=== PATIENT | female | born 1985 | race Caucasian/White ===

== ENCOUNTER → 2017-02-02 | Outpatient (CLI) | payer OTHER ==
[2017-02-02 20:46] LABS: BASO # 0.1 K/mm3 (0.0-0.2); BASO % 0.6 % (0.0-1.0); EOS # 0.1 K/mm3 (0.0-0.50); EOS % 0.9 % (0.0-3.0); LARGE UNSTAINED CELL # 0.2 K/mm3 (0.0-0.4); LARGE UNSTAINED CELL % 1.3 % (0.0-4.0); LYMPH # 2.3 K/mm3 (1.5-4.5); LYMPH % 14.9 % (24.0-44.0); MEAN CORPUSCULAR HGB CONC 33.5 g/dl (32.0-36.5); MEAN CORPUSCULAR VOLUME 89.5 fl (80.0-96.0); MONO # 0.7 K/mm3 (0.0-0.8); MONO % 4.7 % (0.0-5.0); NEUTROPHILS # 11.9 K/mm3 (1.8-7.7); NEUTROPHILS % 77.7 % (36.0-66.0); PLATELET COUNT, AUTOMATED 285 k/mm3 (150-450); RED CELL DISTRIBUTION WIDTH 12.5 % (11.5-14.5); WHITE BLOOD COUNT 15.3 K/mm3 (4.0-10.0)
[2017-02-03 10:05] LABS: HBsAg Prenatal NEGATIVE (NEGATIVE)
== END ==
LOC: M LRY 16:22
PROVIDERS: ATTEND Specialist
DX: Z34.81 Encounter for supervision of other normal pregnancy, first trimester (principal)

== ENCOUNTER → 2017-04-10 | Outpatient (CLI) | payer OTHER ==
[2017-04-10 09:35] LABS: TOTAL VOLUME, URINE 1950 ML
[2017-04-10 09:42] LABS: BASO % 0.2 % (0.0-1.0); EOS # 0.3 K/mm3 (0.0-0.50); EOS % 2.3 % (0.0-3.0); LARGE UNSTAINED CELL # 0.2 K/mm3 (0.0-0.4); LARGE UNSTAINED CELL % 1.4 % (0.0-4.0); LYMPH # 1.6 K/mm3 (1.5-4.5); LYMPH % 13.8 % (24.0-44.0); MEAN CORPUSCULAR HEMOGLOBIN 29.1 pg (27.0-33.0); MEAN CORPUSCULAR HGB CONC 33.4 g/dl (32.0-36.5); MEAN CORPUSCULAR VOLUME 87.1 fl (80.0-96.0); MONO # 0.4 K/mm3 (0.0-0.8); MONO % 3.3 % (0.0-5.0); NEUTROPHILS # 9.1 K/mm3 (1.8-7.7); PLATELET COUNT, AUTOMATED 238 k/mm3 (150-450); RED CELL DISTRIBUTION WIDTH 12.3 % (11.5-14.5); WHITE BLOOD COUNT 11.5 K/mm3 (4.0-10.0)
[2017-04-10 10:03] LABS: ALT/SGPT 17 U/L (12-78); AST/SGOT 12 U/L (15-37); BILIRUBIN,TOTAL 0.3 MG/DL (0.2-1.0); CREATININE FOR GFR 0.74 MG/DL (0.55-1.02); GLOMERULAR FILTRATION RATE > 60.0 (>60); URIC ACID 4.5 MG/DL (2.6-6.0)
[2017-04-10 10:19] LABS: CREATININE, SERUM 0.7 MG/DL (0.6-1.0)
[2017-04-10 10:30] LABS: CREATININE CLEARANCE, URINE 164.8 ML/MIN (75-115)
== END ==
LOC: M LAB 08:51
PROVIDERS: ATTEND Specialist
DX: Z34.81 Encounter for supervision of other normal pregnancy, first trimester (principal)

== ENCOUNTER → 2017-05-10 | Outpatient (CLI) | payer OTHER ==
--- NOTE | 2017-05-11 07:56 | REP ---
Clinical: Anatomical evaluation. Comparison: None . Findings: Examination demonstrates a single live intrauterine in cephalic presentation. motion is identified by technologist. Placenta is noted posteriorly and grade 0 without evidence for placenta previa or abruption. Amniotic fluid volume is normal. Cervix measures 3.6 cm in length and appears closed. No evidence for nuchal cord. Gestational age by LMP 19 weeks 5-day with RENÉE 09/29/2017 . Gestational age by current measurements 20 weeks 1 day with RENÉE 09/26/2017 . FHR equals 106th beats per minute. BPD 4.8 cm 20 weeks 3 days HC 17.8 cm 20 weeks 2 days AC 14.4 cm 19 weeks 5 days FL 3.6 cm 21 weeks 2 days HL 2.9 cm 19 weeks 2 days HC/AC ratio 1.23 Estimated weight 353 grams ( 74th percentile). Anatomical assessment demonstrates normal structures including cranium, choroid plexus, cavum, cerebellum/posterior fossa, lungs, diaphragm, stomach, cord insertion/three-vessel cord, kidneys/bladder, spine, and extremities. Impression: 1. Single live intrauterine in cephalic presentation demonstrating appropriate interval growth. 2. Limited evaluation of the facial features and heart/ventricular outflow tracts. Otherwise normal anatomical assessment. Signed by Topher Nunez MD 05/11/2017 07:47 A
== END ==
LOC: M RAD 09:28
PROVIDERS: ATTEND Specialist
DX: Z34.80 Encounter for supervision of other normal pregnancy, unspecified trimester (principal)

== ENCOUNTER → 2017-06-01 | Outpatient (CLI) | payer OTHER ==
--- NOTE | 2017-06-02 07:45 | REP ---
Clinical: Anatomical re-evaluation. Comparison: 05/10/2017 . Findings: Examination demonstrates a single live intrauterine in variable presentation. motion is identified by technologist. Placenta is noted posterior fundal and grade zero without evidence for placenta previa or abruption. Amniotic fluid volume is normal. Cervix measures 2.9 cm in length and appears closed. No evidence for nuchal cord. Gestational age by LMP 22 weeks 6 days with RENÉE 09/29/2017 . Gestational age by current measurements 23 weeks 2 days with RENÉE 09/26/2017 . FHR equals 142 beats per minute. Estimated weight 615 grams ( 69th percentile). Anatomical assessment demonstrates normal structures including cranium, choroid plexus, cavum, cerebellum/posterior fossa, facial features, lungs, four-chamber heart/ventricular outflow tracts, diaphragm, stomach, cord insertion/three-vessel cord, kidneys/bladder, spine, and extremities. Impression: 1. Single live intrauterine in variable presentation demonstrating appropriate interval growth. 2. In conjunction with prior examination anatomical assessment is complete and normal. Signed by Topher Nunez MD 06/02/2017 07:36 A
== END ==
LOC: M RAD 09:44
PROVIDERS: ATTEND Advanced Practice Midwife
DX: Z34.80 Encounter for supervision of other normal pregnancy, unspecified trimester (principal)

== ENCOUNTER → 2017-07-01 | Outpatient (CLI) | payer OTHER ==
[~2017-07-01] MED LIST: ASPI81CH PO
[2017-07-01 12:56] LABS: MEAN CORPUSCULAR HEMOGLOBIN 28.3 pg (27.0-33.0); MEAN CORPUSCULAR HGB CONC 31.9 g/dl (32.0-36.5); MEAN CORPUSCULAR VOLUME 88.6 fl (80.0-96.0); PLATELET COUNT, AUTOMATED 232 10^3/uL (150-450); RED CELL DISTRIBUTION WIDTH 13.2 % (11.5-14.5); WHITE BLOOD COUNT 13.4 10^3/uL (4.0-10.0)
== END ==
LOC: M SMT 08:24
PROVIDERS: ATTEND Advanced Practice Midwife
DX: Z34.82 Encounter for supervision of other normal pregnancy, second trimester (principal)
CPT/HCPCS: 36415; 82950; 85027; 86850; 86900; 86901; J2790

== ENCOUNTER 2017-07-04 01:37 | Outpatient (CLI) | payer OTHER ==
[~2017-07-04] VITALS: Ht 160 cm; Wt 124.5 kg
[2017-07-04 04:11] VITALS: BP 123/64
[2017-07-04] MEDS ORDERED: ASPI81CH PO (05:13)
== END 2017-07-04 04:50 | disposition home or self-care (01) ==
LOC: M LDO 01:37
PROVIDERS: ATTEND Obstetrics & Gynecology
DX: O26.852 Spotting complicating pregnancy, second trimester (principal); Z3A.27 27 weeks gestation of pregnancy; O9A.212 Injury, poisoning and certain other consequences of external causes complicating pregnancy, second trimester; X58.XXXA Exposure to other specified factors, initial encounter; Y93.9 Activity, unspecified; Y92.9 Unspecified place or not applicable; Y99.8 Other external cause status; S31.41XA Laceration without foreign body of vagina and vulva, initial encounter

== ENCOUNTER → 2017-07-05 | Outpatient (CLI) | payer OTHER | LOC: M LAB 08:25 | PROVIDERS: ATTEND Specialist | DX: R73.02 Impaired glucose tolerance (oral) (principal) ==

== ENCOUNTER → 2017-07-19 | Outpatient (CLI) | payer OTHER ==
--- NOTE | 2017-07-20 07:31 | REP ---
FOLLOWUP OBSTETRICAL ULTRASOUND: CLINICAL: well being. COMPARISON: 06/01/2017. FINDINGS: Ultrasound examination demonstrates single live intrauterine in cephalic presentation. motion was identified by the technologist. Placenta is noted posteriorly and grade 1 without evidence for placenta previa or abruption. Amniotic fluid volume is within normal limits. Gestational age by LMP 29 weeks 5 days with estimated date of delivery 09/29/2017. Gestational age by current measurements 30 weeks 1 day with estimated date of delivery 09/26/2017. FHR 131 beats per minute. BPD 7.5 cm 30 weeks 3 days HC 28.0 cm 30 weeks 5 days AC 26.9 cm 31 weeks 0 days FL 5.8 cm 30 weeks 1 day HC/AC ratio 1.04. Estimated weight 1617 grams (64th percentile). Amniotic fluid index equals 15.8 cm (9.1 - 23.3). Biophysical profile score equals 8 out of 8. Umbilical cord S/d ratio equals 3.72. IMPRESSION: Single live intrauterine in cephalic presentation. Estimated weight within normal range. Biophysical profile score equals 8 out of 8. Amniotic fluid index normal. Signed by Topher Nunez MD 07/23/2017 06:47 A
== END ==
LOC: M SMT 10:49
PROVIDERS: ATTEND Advanced Practice Midwife
DX: O10.011 Pre-existing essential hypertension complicating pregnancy, first trimester (principal); O24.410 Gestational diabetes mellitus in pregnancy, diet controlled

== ENCOUNTER → 2017-07-26 | Outpatient (CLI) | payer OTHER ==
--- NOTE | 2017-07-26 09:39 | REP ---
OB ULTRASOUND BIOPHYSICAL PROFILE: Real-time sonographic evaluation of the gravid uterus is performed. There is a single living intrauterine gestation. Estimated gestational age 30 weeks 5 days with EDC 09/29/2017. The cervix is closed and measures 4.1 cm in length. heart rate 139 beats per minute. Amniotic fluid within normal limits. CALOS 14.0 is within normal range of 8.9 to 23.7. Biophysical profile score is 8 out of 8. S/D ratio 3.44 within normal range. RI at 0.71 within normal range. stomach, kidneys and bladder are visualized and are grossly unremarkable. position is breech. The placenta is posterior and grade 1 with non previa or abruption. Signed by Roni Sainz MD 07/28/2017 08:53 A
== END ==
LOC: M SMT 08:24
PROVIDERS: ATTEND Advanced Practice Midwife
DX: O10.011 Pre-existing essential hypertension complicating pregnancy, first trimester (principal); O24.410 Gestational diabetes mellitus in pregnancy, diet controlled

== ENCOUNTER → 2017-08-02 | Outpatient (CLI) | payer OTHER ==
--- NOTE | 2017-08-03 04:34 | REP ---
Clinical: Biophysical profile. Technique: Transabdominal obstetrical ultrasound with color Doppler evaluation. Comparison: 07/26/2017. Findings: Ultrasound examination demonstrates a single live advanced gestation in transverse lie with head towards the maternal left. motion was appreciated. Placenta noted posteriorly and grade II without evidence for placenta previa or abruption. Cervix measures 4.6 cm in length and appears closed. Amniotic fluid volume is within normal range. heart rate: 126 beats per minute. Amniotic fluid index: 16.3 (8.7 - 24.1). Umbilical cord SD ratio: 3.48 (2.50 - 3.50). Biophysical profile score: 8/8 Impression: Single live advanced gestation in transverse lie. Amniotic fluid index normal. Biophysical profile score equals 8/8. Signed by Topher Nunez MD 08/03/2017 01:25 A
== END ==
LOC: M SMT 08:53
PROVIDERS: ATTEND Advanced Practice Midwife
DX: O24.410 Gestational diabetes mellitus in pregnancy, diet controlled (principal); Z3A.00 Weeks of gestation of pregnancy not specified

== ENCOUNTER → 2017-08-11 | Outpatient (CLI) | payer OTHER | LOC: M SMT 08:52 | DX: O24.410 Gestational diabetes mellitus in pregnancy, diet controlled (principal); Z3A.33 33 weeks gestation of pregnancy; O10.011 Pre-existing essential hypertension complicating pregnancy, first trimester ==

== ENCOUNTER → 2017-08-18 | Outpatient (CLI) | payer OTHER | LOC: M SMT 13:04 | DX: O24.410 Gestational diabetes mellitus in pregnancy, diet controlled (principal); Z3A.34 34 weeks gestation of pregnancy | CPT/HCPCS: 76819 ==

== ENCOUNTER → 2017-08-25 | Outpatient (CLI) | payer OTHER | LOC: M SMT 08:48 | DX: Z3A.35 35 weeks gestation of pregnancy (principal) ==

== ENCOUNTER → 2017-09-01 | Outpatient (CLI) | payer OTHER | LOC: M SMT 08:50 | DX: O10.013 Pre-existing essential hypertension complicating pregnancy, third trimester (principal); O24.410 Gestational diabetes mellitus in pregnancy, diet controlled; Z3A.35 35 weeks gestation of pregnancy | CPT/HCPCS: 76816 ==

== ENCOUNTER → 2017-09-08 | Outpatient (CLI) | payer OTHER | LOC: M SMT 10:17 | DX: O10.011 Pre-existing essential hypertension complicating pregnancy, first trimester (principal); O24.410 Gestational diabetes mellitus in pregnancy, diet controlled; Z3A.37 37 weeks gestation of pregnancy | CPT/HCPCS: 76819 ==

== ENCOUNTER 2017-09-15 07:43 | Inpatient (IN) | payer OTHER ==
[2017-09-15] MEDS: LACTATED RINGER'S 1000 ML IV (08:37)
[2017-09-15 08:57] LABS: HEMATOCRIT 38.7 % (36.0-47.0); HEMOGLOBIN 12.6 g/dl (12.0-16.0); MEAN CORPUSCULAR HEMOGLOBIN 28.3 pg (27.0-33.0); MEAN CORPUSCULAR HGB CONC 32.6 g/dl (32.0-36.5); MEAN CORPUSCULAR VOLUME 86.8 fl (80.0-96.0); PLATELET COUNT, AUTOMATED 223 10^3/uL (150-450); RED BLOOD COUNT 4.46 10^6/uL (4.00-5.40); RED CELL DISTRIBUTION WIDTH 14.4 % (11.5-14.5); WHITE BLOOD COUNT 10.8 10^3/uL (4.0-10.0)
[2017-09-15 09:25] LABS: AMPHETAMINES URINE REFLEX NEGATIVE (NEGATIVE); BARBITURATES URINE REFLEX NEGATIVE (NEGATIVE); BENZODIAZEPINES URINE REFLEX NEGATIVE (NEGATIVE); CANNABINOIDS URINE REFLEX NEGATIVE (NEGATIVE); COCAINE METABOLITE URINE REFLE NEGATIVE (NEGATIVE); METHADONE URINE REFLEX NEGATIVE (NEGATIVE); OPIATES URINE REFLEX NEGATIVE (NEGATIVE); PHENCYCLIDINE URINE REFLEX NEGATIVE (NEGATIVE)
[2017-09-15] MEDS ORDERED: OXYTOCIN INJ 10 UNITS/ML VIAL (J2590) IV (10:15)
[2017-09-15] MEDS: BICITRA 30ML SOLN UDC PO (11:41)
[2017-09-15] MEDS: LR 1,000 ML IV ×2 (11:41→13:03)
[2017-09-15] MEDS ORDERED: NALBUPHINE HCL 10 MG/ML AMP (J2300) IV ×2 (12:02→13:30)
[2017-09-15] MEDS ORDERED: METOCLOPRAMIDE INJ 10MG/2ML VIAL (J2765) IV (12:02)
[2017-09-15] MEDS ORDERED: NALOXONE INJ 0.4 MG/1 ML VIAL (J2310) IV ×2 (12:02)
[2017-09-15] MEDS ORDERED: ONDANSETRON 4MG/2ML VIAL (J2405) IV ×3 (12:02→13:30)
[2017-09-15] MEDS ORDERED: MEASLES,MUMPS,RUBELLA VACCINE INJ (MMR-II) (90707) SC (13:15)
[2017-09-15] MEDS ORDERED: PERCOCET 5MG/325MG TAB PO ×2 (13:15→13:30)
[2017-09-15] MEDS: OXYTOCIN DRIP 30 UNITS in APPROPRIATE DILUENT 1 EA IV (13:15)
[2017-09-15] MEDS ORDERED: fentaNYL 100 MCG/2 ML INJECTION (J3010) IV (13:30)
[2017-09-15] MEDS ORDERED: KETOROLAC 30 MG/ML VIAL (J1885) IV (13:30)
[2017-09-15] MEDS: LABETALOL 200 MG TAB PO ×2 (15:41→23:01)
[2017-09-15] MEDS: KETOROLAC 30 MG/ML VIAL (J1885) IV (19:15)
[2017-09-16] MEDS: LR 1,000 ML IV (00:06)
[2017-09-16] MEDS: KETOROLAC 30 MG/ML VIAL (J1885) IV ×3 (01:33→13:00)
[2017-09-16] MEDS: LABETALOL 200 MG TAB PO ×2 (07:34→20:39)
[2017-09-16 07:40] LABS: HEMATOCRIT 33.8 % (36.0-47.0); HEMOGLOBIN 10.9 g/dl (12.0-16.0); MEAN CORPUSCULAR HEMOGLOBIN 28.5 pg (27.0-33.0); MEAN CORPUSCULAR HGB CONC 32.2 g/dl (32.0-36.5); MEAN CORPUSCULAR VOLUME 88.3 fl (80.0-96.0); PLATELET COUNT, AUTOMATED 176 10^3/uL (150-450); RED BLOOD COUNT 3.83 10^6/uL (4.00-5.40); RED CELL DISTRIBUTION WIDTH 14.4 % (11.5-14.5); WHITE BLOOD COUNT 11.2 10^3/uL (4.0-10.0)
[2017-09-16 09:43] LABS: FETAL SCREEN PROF. 1 1
[2017-09-16] MEDS: PRENATAL VITAMINS CHEWABLE TABLET PO (09:58)
[2017-09-16] MEDS: RHOGAM 300 MCG (1500 IU) INJ (J2790) IM (09:59)
[2017-09-16] MEDS: PERCOCET 5MG/325MG TAB PO (17:10)
[2017-09-16] MEDS: IBUPROFEN 800 MG TAB PO (20:40)
[2017-09-16] MEDS: DOCUSATE SODIUM 100 MG CAP PO (22:03)
[2017-09-17] MEDS: PERCOCET 5MG/325MG TAB PO ×2 (02:32→11:30)
[2017-09-17] MEDS: IBUPROFEN 800 MG TAB PO (05:22)
[2017-09-17] MEDS: LABETALOL 200 MG TAB PO (07:55)
[2017-09-17] MEDS: PRENATAL VITAMINS CHEWABLE TABLET PO (07:55)
== END 2017-09-17 11:55 | disposition home or self-care (01) | DRG 766 ==
LOC: M LDI 07:43 → M OBS 14:20
PROVIDERS: Specialist
PROC: 10D00Z1 Extraction of Products of Conception, Low, Open Approach (ICD-10-PCS; principal; 2017-09-15 09:30)
PROC: 0UB70ZZ Excision of Bilateral Fallopian Tubes, Open Approach (ICD-10-PCS; 2017-09-15 09:30)
PROC: 30233S1 Transfusion of Nonautologous Globulin into Peripheral Vein, Percutaneous Approach (ICD-10-PCS; 2017-09-15 11:55)
DX: O10.02 Pre-existing essential hypertension complicating childbirth (principal); Z3A.38 38 weeks gestation of pregnancy; Z30.2 Encounter for sterilization; O34.211 Maternal care for low transverse scar from previous cesarean delivery; Z37.0 Single live birth

== ENCOUNTER → 2017-12-02 | Outpatient (CLI) | payer OTHER ==
[2017-12-03 08:06] LABS: GLUCOSE,2HR PP 92 MG/ML (70-120)
== END ==
LOC: M LAB 08:27
DX: O24.415 Gestational diabetes mellitus in pregnancy, controlled by oral hypoglycemic drugs (principal)
CPT/HCPCS: 82947